=== PATIENT | female | born 1990 | race Caucasian/White ===

== ENCOUNTER 2018-11-06 21:22 | Inpatient (IN) | payer SELFPAY ==
[~2018-11-06] VITALS: Ht 157.5 cm; Wt 90.7 kg
--- NOTE | 2018-11-06 21:44 | ED Abdominal Pain ---
General Stated Complaint: ABD PAIN Source of Information: Patient (PT DOES NOT SPEAK [place] CITIZ[place], MALE S.O.AND CHILDREN INTERPRET, BUT HAVE LIMITED [place] CITIZ[place]. ), Family Exam Limitations: Language Barrier, Other (MULTIPLE ATTEMPTS TO CONTACT OUR LANGUAGE LINE WERE UNSUCCESSFUL. ) History of Present Illness Date Seen by Provider: November 06, 2018 Time Seen by Provider: 21:28 Initial Comments PT ARRIVES VIA POV C/O LOWER ABDOMINAL PAIN SINCE YESTERDAY AM PAIN RADIATES TO BILATERAL FLANK AREAS--LEFT > RIGHT HAS MILD PAIN ON URINATION C/O MILD NAUSEA, NO VOMITING OR DIARRHEA HAD POSSIBLE SLIGHT FEVER YESTERDAY MORNING NO PRIOR HISTORY OF SIMILAR LMP 2-3 MONTHS AGO, NO CONTROL LAST INTAKE --2 HOURS AGO--WATER, RICE AND BLACK BEANS PCP: NONE Allergies and Home Medications Allergies Coded Allergies: No Known Drug Allergies (Unverified , 11/06/18) Patient Home Medication List Home Medication List Reviewed: Yes Review of Systems Review of Systems Constitutional: see HPI Respiratory: No Symptoms Reported Cardiovascular: No Symptoms Reported Gastrointestinal: See HPI, Abdominal Pain, Nausea; Denies Vomiting Genitourinary: See HPI, Burning, Flank Pain, Pain Musculoskeletal: see HPI, back pain Skin: no symptoms reported Psychiatric/Neurological: No Symptoms Reported Past Uwobztd-Wmcgxb-Yovpzo Hx Patient Social History Alcohol Use: Denies Use Recreational Drug Use: No Smoking Status: Never a Smoker Recent Foreign Travel: No Contact w/Someone Who Travel: No Past Medical History Surgeries: Yes ( X 2) Section Respiratory: No Cardiac: No Neurological: No Reproductive Disorders: No Genitourinary: Yes Bladder Infection, UTI-Chronic Gastrointestinal: No Musculoskeletal: No Endocrine: No HEENT: No Cancer: No Psychosocial: No Integumentary: No Blood Disorders: No Physical Exam Vital Signs Vital Signs - First Documented 11/06/18 21:45 Temp 98.1 Pulse 117 Resp 22 B/P (MAP) 130/91 (104) Pulse Ox 100 O2 Delivery Room Air Capillary Refill : Height/Weight/BMI Height: '" Weight: lbs. oz. kg; BMI Method: General Appearance: no apparent distress, obese, other (LOOKS UNCOMFORTABLE, HOLDING LOWER ABDOMEN) Respiratory: normal breath sounds, no respiratory distress, no accessory muscle use Cardiovascular: regular rate, rhythm, no murmur Gastrointestinal: normal bowel sounds, soft, no pulsatile mass; No distended; guarding, tenderness (DIFFUSE LOWER ); No mass Extremities: normal inspection Back: CVA tenderness (R), CVA tenderness (L) (lEFT > RIGHT) Neurologic/Psychiatric: box inspector II-XII nml as tested, no motor/sensory deficits, al ert, normal mood/affect, oriented x 3 Skin: normal color, warm/dry Focused Exam Lactate Level 11/06/18 22:38: Lactic Acid Level 2.00 Lactic Acid Level Laboratory Tests Test 11/06/18 22:38 Lactic Acid Level 2.00 MMOL/L (0.50-2.00) Progress/Results/Core Measures Results/Orders Lab Results Laboratory Tests Test 11/06/18 21:36 11/06/18 22:38 Range/Units White Blood Count 18.9 H 4.3-11.0 10^3/uL Red Blood Count 4.94 4.35-5.85 10^6/uL Hemoglobin 11.4 L 11.5-16.0 G/DL Hematocrit 37 35-52 % Mean Corpuscular Volume 75 L 80-99 FL Mean Corpuscular Hemoglobin 23 L 25-34 PG Mean Corpuscular Hemoglobin Concent 31 L 32-36 G/DL Red Cell Distribution Width 16.1 H 10.0-14.5 % Platelet Count 586 H 130-400 10^3/uL Mean Platelet Volume 12.1 H 7.4-10.4 FL Neutrophils (%) (Auto) 65 42-75 % Lymphocytes (%) (Auto) 24 12-44 % Monocytes (%) (Auto) 4 0-12 % Eosinophils (%) (Auto) 7 0-10 % Basophils (%) (Auto) 0 0-10 % Neutrophils # (Auto) 12.2 H 1.8-7.8 X 10^3 Lymphocytes # (Auto) 4.6 H 1.0-4.0 X 10^3 Monocytes # (Auto) 0.8 0.0-1.0 X 10^3 Eosinophils # (Auto) 1.3 H 0.0-0.3 10^3/uL Basophils # (Auto) 0.1 0.0-0.1 10^3/uL Neutrophils % (Manual) 64 % Lymphocytes % (Manual) 25 % Monocytes % (Manual) 7 % Eosinophils % (Manual) 3 % Basophils % (Manual) 0 % Reactive Lymphocytes 1 % Polychromasia SLIGHT Hypochromasia SLIGHT Anisocytosis SLIGHT Microcytosis SLIGHT Target Cells SLIGHT Prothrombin Time 13.2 12.2-14.7 SEC INR Comment 1.0 0.8-1.4 Activated Partial Thromboplast Time 37 H 24-35 SEC Urine Color YELLOW Urine Clarity SLIGHTLY CLOUDY Urine pH 6 5-9 Urine Specific [place] 1.020 1.016-1.022 Urine Protein 1+ H NEGATIVE Urine Glucose (UA) NEGATIVE NEGATIVE Urine Ketones NEGATIVE NEGATIVE Urine Nitrite NEGATIVE NEGATIVE Urine Bilirubin NEGATIVE NEGATIVE Urine Urobilinogen NORMAL NORMAL MG/DL Urine Leukocyte Esterase 3+ H NEGATIVE Urine RBC (Auto) 4+ H NEGATIVE Urine RBC 50-100 H /HPF Urine WBC >100 H /HPF Urine Squamous Epithelial Cells 2-5 /HPF Urine Crystals NONE /LPF Urine Bacteria MODERATE H /HPF Urine Casts NONE /LPF Urine Mucus NEGATIVE /LPF Urine Culture Indicated YES Sodium Level 141 135-145 MMOL/L Potassium Level 3.4 L 3.6-5.0 MMOL/L Chloride Level 108 H 98-107 MMOL/L Carbon Dioxide Level 22 21-32 MMOL/L Anion Gap 11 5-14 MMOL/L Blood Urea Nitrogen 13 7-18 MG/DL Creatinine 0.70 0.60-1.30 MG/DL Estimat Glomerular Filtration Rate > 60 BUN/Creatinine Ratio 19 Glucose Level 102 70-105 MG/DL Calcium Level 9.4 8.5-10.1 MG/DL Corrected Calcium 9.2 8.5-10.1 MG/DL Total Bilirubin 0.2 0.1-1.0 MG/DL Aspartate Amino Transf (AST/SGOT) 14 5-34 U/L Alanine Aminotransferase (ALT/SGPT) 12 0-55 U/L Alkaline Phosphatase 119 40-136 U/L Total Protein 8.3 H 6.4-8.2 GM/DL Albumin 4.2 3.2-4.5 GM/DL Amylase Level 59 25-125 U/L Lipase 28 8-78 U/L Lactic Acid Level 2.00 0.50-2.00 MMOL/L My Orders Orders - SONI ROBERTS DO Urine Bedside (11/06/18 21:28) Ua Culture If Indicated (11/06/18 21:28) Ed Iv/Invasive Line Start (11/06/18 21:30) Amylase (11/06/18 21:30) Cbc With Automated Diff (11/06/18 21:30) Comprehensive Metabolic Panel (11/06/18 21:30) Lipase (11/06/18 21:30) Manual Differential (11/06/18 21:36) Urine Culture (11/06/18 21:36) Ketorolac Injection (Toradol Injection) (11/06/18 22:15) Ct Abd/Pelvis Wo(Kidney Stone) (11/06/18 22:03) Acute Abd Series (11/06/18 22:03) Ed Iv/Invasive Line Start (11/06/18 22:03) Lactic Acid Analyzer (11/06/18 22:03) Blood Culture (11/06/18 22:03) Ceftriaxone For Iv Use (Rocephin For I (11/06/18 22:15) Protime With Inr (11/06/18 22:03) Partial Thromboplastin Time (11/06/18 22:03) Ed Iv/Invasive Line Start (11/06/18 22:03) Ed Iv/Invasive Line Start (11/06/18 22:03) Vital Signs Adult Sepsis Patie Q15M (11/06/18 22:03) Remove Rings In Anticipation O (11/06/18 22:03) Ed Iv/Invasive Line Start (11/06/18 22:07) Lactated Ringers (Lr 1000 Ml Iv Solution (11/06/18 22:07) Medications Given in ED Current Medications Medications Dose Ordered Sig/Delmy Route Start Time Stop Time Status Last Admin Dose Admin Ceftriaxone Sodium 1000 mg/ Sterile Water 10 ml @ 200 mls/hr ONCE ONCE IV 11/06/18 22:15 11/06/18 22:17 DC 11/07/18 00:41 200 MLS/HR Ketorolac Tromethamine 30 mg ONCE ONCE IVP 11/06/18 22:15 11/06/18 22:16 DC 11/06/18 22:35 30 MG Lactated Ringer's 1,000 ml @ 0 mls/hr Q0M ONCE IV 11/06/18 22:07 11/06/18 22:09 DC 11/06/18 22:35 0 MLS/HR Vital Signs/I&O 11/06/18 21:45 Temp 98.1 Pulse 117 Resp 22 B/P (MAP) 130/91 (104) Pulse Ox 100 O2 Delivery Room Air Progress Progress Note : Progress Note NO DETERIORATION IN PT'S CONDITION DURING ER STAY MODERATE IMPROVEMENT IN PAIN WITH TORADOL Diagnostic Imaging Comments ABDOMEN XRAYS--LARGE CALCIFICATIONS IN AREA OF LEFT KIDNEY, PENDING RADIOLOGIST REVIEW CT ABDOMEN/PELVIS--EXTENSIVE LARGE STAGHORN CALCULUS THROUGHOUT LEFT KIDNEY. NO ACUTE OBSTRUCTIVE PROCESS, MILD DIVERTICULOSIS WITHOUT ACUTE DIVERTICULITIS. PER [facility] VIA FAX @ [phone] Reviewed: Reviewed by Fl Departure Communication (Admissions) [id number]--ATTEMPTING TO CONTACT DR. LAU, MESSAGE LEFT ON MACHINE [id number]--SPOKE WITH DR. LAU, ACCEPTS PT FOR ADMIT. WILL CONSULT UROLOGY WHEN AVAILABLE Impression Primary Impression: Urinary tract infection Additional Impressions: Sepsis LEFT STAGHORN CALCULUS Disposition: ADMITTED INPATIENT Condition: Stable Departure-Patient Inst. Referrals: NO,LOCAL PHYSICIAN (PCP/Family) Primary Care Physician SONI ROBERTS DO November 06, 2018 21:43
[2018-11-06 21:49] LABS: BASOPHILS # (AUTO) 0.1 10^3/uL (0.0-0.1); BASOPHILS % (AUTO) 0 % (0-10); EOSINOPHILS # (AUTO) 1.3 10^3/uL (0.0-0.3); EOSINOPHILS % (AUTO) 7 % (0-10); HEMATOCRIT 37 % (35-52); HEMOGLOBIN 11.4 G/DL (11.5-16.0); LYMPHOCYTES # (AUTO) 4.6 X 10^3 (1.0-4.0); LYMPHOCYTES % (AUTO) 24 % (12-44); MEAN CORPUSCULAR HEMOGLOBIN 23 PG (25-34); MEAN CORPUSCULAR HGB CONC 31 G/DL (32-36); MEAN CORPUSCULAR VOLUME 75 FL (80-99); MEAN PLATELET VOLUME 12.1 FL (7.4-10.4); MONOCYTES # (AUTO) 0.8 X 10^3 (0.0-1.0); MONOCYTES % (AUTO) 4 % (0-12); NEUTROPHILS # (AUTO) 12.2 X 10^3 (1.8-7.8); NEUTROPHILS % (AUTO) 65 % (42-75); PLATELET COUNT 586 10^3/uL (130-400); RED CELL DISTRIBUTION WIDTH 16.1 % (10.0-14.5); WHITE BLOOD COUNT 18.9 10^3/uL (4.3-11.0)
[2018-11-06 21:51] LABS: BILIRUBIN,URINE NEGATIVE (NEGATIVE); CLARITY,URINE SLIGHTLY CLOUDY; COLOR,URINE YELLOW; GLUCOSE, URINE (UA) NEGATIVE (NEGATIVE); KETONES,URINE NEGATIVE (NEGATIVE); LEUKOCYTE ESTERASE ,URINE 3+ (NEGATIVE); NITRITE,URINE NEGATIVE (NEGATIVE); PH,URINE 6 (5-9); PROTEIN,URINE 1+ (NEGATIVE); UROBILINOGEN,URINE NORMAL (NORMAL)
[2018-11-06 22:02] LABS: BACTERIA,URINE MODERATE /HPF; RBC,URINE 50-100 /HPF; WBC,URINE >100 /HPF
[2018-11-06] MEDS ORDERED: LACTATED RINGERS 1,000 ML IV ONE ×2 (22:07→23:12)
[2018-11-06 22:08] LABS: ALANINE AMINOTRANSFERASE 12 U/L (0-55); ALBUMIN 4.2 GM/DL (3.2-4.5); ALKALINE PHOSPHATASE 119 U/L (40-136); AMYLASE 59 U/L (25-125); BILIRUBIN,TOTAL 0.2 MG/DL (0.1-1.0); BUN/CREATININE RATIO 19; CALCIUM 9.4 MG/DL (8.5-10.1); CARBON DIOXIDE 22 MMOL/L (21-32); CHLORIDE 108 MMOL/L (98-107); GFR ESTIMATED > 60; GLUCOSE 102 MG/DL (70-105); LIPASE 28 U/L (8-78); POTASSIUM 3.4 MMOL/L (3.6-5.0); SODIUM 141 MMOL/L (135-145); TOTAL PROTEIN 8.3 GM/DL (6.4-8.2)
[2018-11-06] MEDS ORDERED: cefTRIAXone FOR IV USE 1,000 MG in WATER (STERILE) FOR INJECTION 10 ML IV ONE (22:15)
[2018-11-06] MEDS ORDERED: KETOROLAC 30 MG/ML VIAL IVP ONE (22:15)
[2018-11-06 22:21] LABS: BASOPHILS % (MANUAL) 0 %; LYMPHOCYTES % (MANUAL) 25 %; MONOCYTES % (MANUAL) 7 %; NEUTROPHILS % (MANUAL) 64 %
[2018-11-06 22:22] LABS: EOSINOPHILS % (MANUAL) 3 %; REACTIVE LYMPHOCYTES 1 %
[2018-11-06 22:23] LABS: ANISOCYTOSIS SLIGHT; MICROCYTOSIS SLIGHT; POLYCHROMASIA SLIGHT; TARGET CELLS SLIGHT
[2018-11-06 22:24] LABS: HYPOCHROMASIA SLIGHT
[2018-11-06 22:25] LABS: PROTHROMBIN TIME PATIENT 13.2 SEC (12.2-14.7)
[2018-11-06] MEDS ORDERED: fentaNYL INJECTION 100 MCG/2 ML AMP IVP ONE (23:15)
[2018-11-07] MEDS ORDERED: WATER (STERILE) FOR INJECTION 10 ML ONE (00:31)
[2018-11-07] MEDS ORDERED: cefTRIAXone 1,000 MG IV (ROCEPHIN) VIAL ONE (00:31)
[2018-11-07 00:54] VITALS: BP 115/54
--- NOTE | 2018-11-07 01:20 | NUR ---
27 year od female admited with sepsis, kidney stone, and UTI. IV fluids infusing per left AC. Accompanied by family ti room 414, Ambulates with steady gait. States pain level 3/10.
[2018-11-07 01:41] VITALS: BP 97/51
[2018-11-07] MEDS ORDERED: D5 1/2 NS W/KCL 20 MEQ/L 1,000 ML IV ONE (02:13)
[2018-11-07] MEDS ORDERED: ONDANSETRON 4 MG/2 ML (SDV) Z0FRAN IV PRN (02:30)
[2018-11-07] MEDS ORDERED: ACETAMINOPHEN 500 MG TAB (TYLENOL) PO PRN (02:30)
[2018-11-07] MEDS ORDERED: fentaNYL INJECTION 100 MCG/2 ML AMP IV PRN (02:30)
[2018-11-07] MEDS ORDERED: KETOROLAC 30 MG/ML VIAL IVP PRN (02:30)
[2018-11-07 04:38] VITALS: BP 93/57
--- NOTE | 2018-11-07 05:33 | Diagnostic Imaging Report ---
EXAMINATION: Acute abdomen series INDICATION: Abdominal pain The accompanying erect PA chest shows the heart size to be within normal limits. The lungs are clear. There is no sign of pneumoperitoneum. Supine and erect views of the abdomen were obtained. The extensive staghorn calculus formation throughout the left kidney seen on the CT abdomen/pelvis exam performed prior to the study is again visualized. There is no other pathological calcification noted. There is gas in both the large and small bowel in a nonspecific fashion. There is no sign of bowel obstruction. There is no mass, organomegaly or pathological calcification. L5 is a transitional vertebra with sacralization on the left. IMPRESSION: 1. There is no evidence for an acute abnormality. 2. There is extensive staghorn calculus formation throughout the left kidney. Dictated by: Dictated on workstation # [id number]
--- NOTE | 2018-11-07 05:42 | Diagnostic Imaging Report ---
PROCEDURE: CT urinary tract, rule out kidney stone. TECHNIQUE: Multiple contiguous axial images were obtained through the abdomen and pelvis without the use of intravenous contrast. Auto Exposure Controls were utilized during the CT exam to meet ALARA standards for radiation dose reduction. INDICATION: Abdominal pain There are no prior studies available for comparison. This exam is less than optimal due to motion artifact. There is considerable staghorn calculus formation throughout the left kidney. The left renal cortex is thinned. There is no sign of an obstructive calculus involving the left kidney, however. There is no evidence for nephrolithiasis on the right and the right kidney is generally unremarkable. There are few diverticula in the sigmoid colon. There is no evidence for an acute diverticulitis. There is no pelvic mass or free fluid collection evident. The uterus and urinary bladder are grossly unremarkable. The appendix was visualized and is not abnormally thickened. The liver, spleen, pancreas, adrenals, gallbladder, aorta and inferior vena cava show no sign of an acute abnormality. The stomach is filled with particulate matter and difficult to evaluate. The lung bases are clear. There is no obvious breast mass. The bone windows show no evidence for a fracture or of a destructive lesion. IMPRESSION: 1. There is no evidence for an acute abnormality of the abdomen or pelvis. 2. There is considerable staghorn calculus formation throughout the left kidney and there is thinning of the left renal cortex. 3. There are few diverticula in the sigmoid colon but there is no evidence for acute diverticulitis. Dictated by: Dictated on workstation # [id number]
[2018-11-07 06:39] LABS: BASOPHILS # (AUTO) 0.1 10^3/uL (0.0-0.1); BASOPHILS % (AUTO) 0 % (0-10); EOSINOPHILS # (AUTO) 0.9 10^3/uL (0.0-0.3); EOSINOPHILS % (AUTO) 6 % (0-10); HEMATOCRIT 37 % (35-52); HEMOGLOBIN 11.3 G/DL (11.5-16.0); LYMPHOCYTES # (AUTO) 4.6 X 10^3 (1.0-4.0); LYMPHOCYTES % (AUTO) 32 % (12-44); MEAN CORPUSCULAR HEMOGLOBIN 23 PG (25-34); MEAN CORPUSCULAR HGB CONC 31 G/DL (32-36); MEAN CORPUSCULAR VOLUME 75 FL (80-99); MEAN PLATELET VOLUME 12.3 FL (7.4-10.4); MONOCYTES % (AUTO) 7 % (0-12); NEUTROPHILS # (AUTO) 7.8 X 10^3 (1.8-7.8); NEUTROPHILS % (AUTO) 54 % (42-75); PLATELET COUNT 529 10^3/uL (130-400); RED CELL DISTRIBUTION WIDTH 16.2 % (10.0-14.5); WHITE BLOOD COUNT 14.3 10^3/uL (4.3-11.0)
[2018-11-07 07:01] LABS: ALANINE AMINOTRANSFERASE 11 U/L (0-55); ALBUMIN 3.6 GM/DL (3.2-4.5); ALKALINE PHOSPHATASE 101 U/L (40-136); BILIRUBIN,TOTAL 0.2 MG/DL (0.1-1.0); BUN/CREATININE RATIO 17; CALCIUM 8.7 MG/DL (8.5-10.1); CARBON DIOXIDE 21 MMOL/L (21-32); CHLORIDE 111 MMOL/L (98-107); CREATININE SERUM 0.63 MG/DL (0.60-1.30); GFR ESTIMATED > 60; GLUCOSE 105 MG/DL (70-105); SODIUM 139 MMOL/L (135-145); TOTAL PROTEIN 7.1 GM/DL (6.4-8.2)
[2018-11-07] MEDS: D5 1/2 NS W/KCL 20 MEQ/L 1,000 ML IV SCH ×2 (07:04→09:01)
[2018-11-07 07:29] VITALS: BP 116/74
--- NOTE | 2018-11-07 11:31 | History & Physical-Hospitalist ---
History of Present Illness HPI/Chief Complaint The patient is a 27-year-old who works at [employer]. She reportedly began to have abdominal pain on . She was able to work her shift in spite of that. She went to work again yesterday but became more ill and had to leave. She then went to the emergency room where she was found to have a urinary tract infection. A CT scan showed the left kidney to have a huge staghorn calculus. The patient was unaware of this. The UA showed 50-100 red blood cells per high-powered field and greater than 100 white cells. Her CBC showed a WBCs of 18,900 which is now fallen to 14,300. She is anxious to leave as she fears the loss of her job. Date Seen 11/07/18 Time Seen by a Provider: 11:27 Attending Physician Rj Lau MD PCP No,Local Physician Referring Physician Date of Admission November 06, 2018 at 23:00 Home Medications & Allergies Home Medications Reviewed patient Home Medication Reconciliation performed by pharmacy medication reconciliations medical equipment repair technician and/or nursing. Patients Allergies have been reviewed. Allergies Allergies Coded Allergies No Known Drug Allergies (Unverified11/06/18) Past Nugflwo-Lkdznb-Hgcdep Hx Past Med/Social Hx: Reviewed Nursing Past Med/Soc Hx Patient Social History Alcohol Use: Denies Use Recreational Drug Use: No Smoking Status: Never a Smoker Recent Foreign Travel: No Contact w/other who traveled: No Recent Hopitalizations: No Recent Infectious Disease Expo: No Seasonal Allergies Seasonal Allergies: No Past Medical History Surgeries: Section Hx : 2 Hx Para: 2 Reproductive: No Tubal Ligation Genitourinary: Bladder Infection, UTI-Chronic History of Blood Disorders: No Review of Systems Constitutional: see HPI EENTM: no symptoms reported Respiratory: no symptoms reported Cardiovascular: no symptoms reported Gastrointestinal: abdominal pain Genitourinary: see HPI Musculoskeletal: no symptoms reported Skin: no symptoms reported Psychiatric/Neurological: No Symptoms Reported Physical Exam Physical Exam Vital Signs Vital Signs - First Documented 11/06/18 11/07/18 21:45 01:20 Temp 98.1 Pulse 117 Resp 22 B/P (MAP) 130/91 (104) Pulse Ox 100 O2 Delivery Room Air FiO2 21 Capillary Refill : Less Than 3 Seconds Height, Weight, BMI Height: 5'2.00" Weight: 200lbs. 0.0oz. 90.904647sy; 36.6 BMI Method:Stated General Appearance: No Apparent Distress Eyes: Bilateral Eye Normal Inspection HEENT: Normal ENT Inspection Neck: Normal Inspection Respiratory: Chest Non Tender, Lungs Clear, Normal Breath Sounds, No Accessory Muscle Use, No Respiratory Distress Cardiovascular: Regular Rate, Rhythm, No Edema, No Gallop, No JVD, No Murmur, Normal Peripheral Pulses Gastrointestinal: Normal Bowel Sounds, No Organomegaly, Other (obese) Back: Normal Inspection, No CVA Tenderness Extremity: Normal Capillary Refill, Normal Inspection Neurologic/Psychiatric: Alert, Oriented x3, No Motor/Sensory Deficits, Normal Mood/Affect Skin: Normal Color, Warm/Dry Lymphatic: No Adenopathy Results Results/Procedures Labs Laboratory Tests 11/06/18 21:36 11/07/18 05:35 Patient resulted labs reviewed. Assessment/Plan Admission Diagnosis 1.urinary tract infection. 2.large staghorn calculus left kidney. Admission Status: Observation Assessment and Plan IV antibiotics. She will need nephrology/urology consultation relative to tur treatment of staghorn calculus. Clinical Quality Measures DVT/VTE Risk/Contraindication: Risk Factor Score Per Nursin RFS Level Per Nursing on Admit: 4+=Very High RJ LAU MD Nov 07, 2018 11:31
[2018-11-07] MEDS ORDERED: CEFD300C3 PO (11:33)
[2018-11-07 11:40] VITALS: BP 101/61
--- NOTE | 2018-11-07 11:55 | Discharge Inst-Simple/Standard ---
Discharge Inst-Standard Patient Instructions/Follow Up Plan of Care/Instructions/FU: Get your prescription filled today and take it as prescribed. Plenty of fluids You will need to have a follow-up at [facility]. Call there Friday afternoon to confirm the appointment. You may return to work Friday Activity as Tolerated: Yes Goal: Return to previous state of health Discharge Diet: No Restrictions Return to The Hospital For: Recurrence of fever and abdominal pain. JASON LAU MD Nov 07, 2018 11:54
[2018-11-08] MEDS ORDERED: cefTRIAXone 1,000 MG/SWFI 10 ML IV PUSH IV SCH ×2
--- NOTE | 2018-11-09 17:08 | Physician Query-Final Dx ---
OXANA DUNLAP 11/09/18 1708: Final Diagnosis Give Final Diagnosis Please give Final Diagnosis VAL BERRY 12/21/18 1349: OXANA DUNLAP Nov 09, 2018 17:08 VAL BERRY Dec 21, 2018 13:49
--- NOTE | 2018-11-11 14:28 | Physician Query Clarification ---
PQ-Conflicting Diagnosis Admission/Discharge Admission Date: November 06, 2018 at 23:00 Discharge Date: Nov 07, 2018 at 12:45 The medical record reflects the following clinical scenario: History/Risk Factors: UTI, Staghorn calculus LT kidney Clinical Findings: T98.1, P 117, R 22, Lactic 2.00, BP 115/54 Treatment: IV Rocephin Question: Do you agree with the impression of the Sepsis per Dr. Rojo. Please document a response in Progress Note or Discharge Summary. 1. Yes 2. No 3. Other, with explanation of clinical findings 4. Clinically undetermined, no explanation for clinical findings. Please remember a lack of response to the above will prompt a phone page by [facility]/Coding staff. In responding to this query, please exercise your independent professional judgment. The purpose of this communication is to more accurately reflect the complexity of your patients condition. The fact that a question is asked does not imply that any particular answer is desired or expected. Thank you for your timely response to this clarification. Requestors name: Alicia THIS PHYSICIAN QUERY FORM IS A PERMANENT PART OF THE MEDICAL RECORD ALICIA DURAN Nov 11, 2018 14:28 VAL BERRY Dec 21, 2018 13:30
== END 2018-11-07 12:45 | disposition home or self-care (01) | DRG 690 ==
LOC: ER 21:24 → 4TH 23:00
PROVIDERS: ADMIT Internal Medicine; ATTEND Internal Medicine
DX: N39.0 Urinary tract infection, site not specified (principal); N20.0 Calculus of kidney; K57.90 Diverticulosis of intestine, part unspecified, without perforation or abscess without bleeding
CPT/HCPCS: 36415; 74022; 74176; 80053; 81000; 82150; 83605; 83690; 84703; 85007; 85025; 85027; 85610; 85730; 87040; 87077; 87088; 87186; 96361; 96374; 96375